=== PATIENT | male | born 2000 | race Caucasian/White ===

== ENCOUNTER 2021-07-18 05:43 | Observation (INO) ==
[2021-07-18] MEDS ORDERED: ONDANSETRON INJ 2 MG/ML 2 ML VIAL IV STA (05:59)
[2021-07-18] MEDS ORDERED: PANTOprazole 80 MG in SYRINGE 0 ML IV ONE (05:59)
[2021-07-18] MEDS ORDERED: FAMOTIDINE 20MG IV PUSH 20 MG/5 ML SYR IV STA (05:59)
[2021-07-18] MEDS ORDERED: SODIUM CHLORIDE 0.9% 1000ML 1,000 ML IV SCH ×2 (06:00→07:45)
[2021-07-18] MEDS ORDERED: PANTOprazole 80 MG in DEXTROSE 5% 100 ML IV ONE ×2 (06:15→10:00)
[2021-07-18 06:30] LABS: Basophils # (auto) 0.02 K/uL (0-0.2); Basophils % (auto) 0.2 %; Eosinophils # (auto) 0.03 K/uL (0-0.5); Eosinophils % (auto) 0.3 %; Hematocrit (blood only) 38.5 % (42-52); Hemoglobin 13.5 g/dL (14.0-18.0); Immature Granulocytes # (auto) 0.02 K/uL (0.00-0.02); Immature Granulocytes % (auto) 0.2 %; Lymphocytes % (auto) 24.6 %; Mean Corpuscular Hemoglobin 30.3 pg (25-34); Mean Corpuscular Hgb Conc 35.1 g/dL (32-36); Mean Corpuscular Volume 86.3 fL (80-100); Mean Platelet Volume 11.1 fL (7.4-10.4); Monocytes # (auto) 0.33 K/uL (0.11-0.59); Monocytes % (auto) 3.2 %; Neutrophils # (auto) 7.27 K/uL (1.4-6.5); Neutrophils % (auto) 71.5 %; Platelet Count 261 K/uL (130-400); RDW Coefficient of Variation 12.9 % (11.5-14.5); RDW Standard Deviation 40.8 fL (36.4-46.3); Red Blood Count 4.46 M/uL (4.7-6.1); White Blood Count 10.17 K/uL (4.8-10.8)
[2021-07-18 06:30] LABS: iSTAT Hemoglobin 13.3 g/dl (14.0-18.0); iSTAT Ionized Calcium 1.08 mmol/l; iSTAT Potassium 3.9 mmol/L (3.3-5.0)
[2021-07-18 06:59] LABS: Albumin Globulin Ratio 1.8 (0.9-2); Albumin Level 4.4 gm/dl (3.4-5.0); BUN Creatinine Ratio 41.4 (10-20); Bilirubin,Total 1.2 mg/dl (0.2-1.0); Calcium 8.9 mg/dl (8.5-10.1); Creatinine Clr Calc Pharmacy 79.1 ml/min; Est GFR (African American) 126.5 ml/min; Est GFR (Non-African American) 109.2 ml/min; Globulin 2.5 gm/dl (2.5-4.0); Potassium 3.8 mmol/L (3.5-5.1); Total Protein 6.9 gm/dl (6.0-8.3)
--- NOTE | 2021-07-18 07:34 | Emergency Department Note ---
History of Present Illness General Chief complaint: GI Assessment Stated complaint: BLOODY VOMIT/STOOL Time Seen by Provider: 07/18/21 06:32 History of Present Illness 20-year-old male presents to the ED with a chief complaint of vomiting blood and black stools. The patient states that he had an episode of vomiting this morning around 3 AM. He states that it was black and also bloody appearing. The patient states that shortly thereafter he moved his bowels and his bowels were black. He states that when he would stand up he felt lightheaded. For this reason he came to the hospital. Denies any chest pains. No abdominal pains. No additional symptoms. He denies NSAID use. The patient denies any other complaints at this time. Past Med/Surg History Social History Smoking Status: Never smoker Preferred Language: Japanese Feels Safe at Home: Yes Review of Systems A total of 10 systems reviewed and were otherwise negative Physical Exam Vital Signs Vital Signs - 24 hr 07/18/21 05:48 07/18/21 06:15 Temperature 36.0 C L Temperature Source Temporal Artery Scan Pulse Rate 87 95 H Respiratory Rate 20 22 Blood Pressure 94/63 L 95/70 L Blood Pressure Mean 73 78 Pulse Oximetry 100 100 Oxygen Delivery Method Room Air Room Air Sepsis Recent Fever Within 48 Hours No Sepsis New/Unexplained Change in Mental Status N/A Sepsis Action Taken by Nursing No Action Required CONSTITUTIONAL/VITAL SIGNS: Reviewed / noted above. GENERAL: Non-toxic in appearance. INTEGUMENTARY: Warm, dry, and [place]. HEAD: Normocephalic. EYES: without scleral icterus or trauma. ENT/OROPHARYNX: clear and moist. LYMPHADENOPATHY/NECK: Is supple without lymphadenopathy or meningismus. RESPIRATORY: Clear to auscultation bilaterally. No increased work of breathing. CARDIOVASCULAR: Regular rate and rhythm. GI/ABDOMEN: Soft and nontender. No organomegaly or pulsatile mass. EXTREMITIES: Warm and well perfused. BACK: No CVA tenderness. NEUROLOGICAL: Intact without focal deficits. PSYCHIATRIC: normal affect. MUSCULOSKELETAL: Normally developed with good muscle tone. RECTAL: Stool is guaiac positive and black TRIAGE NURSING DOCUMENTATION REVIEWED. Course Administered Medications Discontinued Medications Sodium Chloride (Nss 1000ml) 1,000 mls @ 999 mls/hr IV .Q1H1M OPAL Stop: 07/18/21 07:00 Last Infusion: 07/18/21 07:23 Dose: 0 mls/hr Documented by: [id number] Admin: 07/18/21 06:19 Dose: 999 mls/hr Documented by: [id number] Famotidine (Pepcid 20mg Iv Push) 20 mg in 5 mls @ 2.5 mls/min IV NOW STA Stop: 07/18/21 06:00 Last Admin: 07/18/21 06:19 Dose: 2.5 mls/min Documented by: [id number] Pantoprazole Sodium 80 mg/ (Dextrose) 120 mls @ 480 mls/hr IV ONE ONE Stop: 07/18/21 06:29 Last Infusion: 07/18/21 07:23 Dose: 0 mls/hr Documented by: [id number] Admin: 07/18/21 06:35 Dose: 480 mls/hr Documented by: [id number] Ondansetron HCl (Ondansetron Inj 2 Mg/Ml 2 Ml Vial) 4 mg IV NOW STA Stop: 07/18/21 06:00 Last Admin: 07/18/21 06:19 Dose: 4 mg Documented by: [id number] Medical Decision Making Differential Diagnosis Differential includes acute coronary syndrome, myocardial infarction, CVA, TIA, anemia, infection, pneumonia, UTI, pyelonephritis, poor nutrition, dehydration, electrolyte disturbance,hypoglycemia. Medical Records Attestation: I reviewed the patient's medical records. Home Medications Current Medication List: was personally reviewed by me Laboratory Data Attestation: I reviewed the patient's lab results. Result diagrams: 07/18/21 06:14 07/18/21 06:14 Lab Results 07/18/21 07/18/21 07/18/21 Range/Units 06:07 06:14 06:14 WBC 10.17 (4.8-10.8) K/uL RBC 4.46 L (4.7-6.1) M/uL Hgb 13.5 L (14.0-18.0) g/dL POC Hgb (14.0-18.0) g/dl Hct 38.5 L (42-52) % POC Hct (42-52) % MCV 86.3 (80-100) fL MCH 30.3 (25-34) pg MCHC 35.1 (32-36) g/dL RDW Std Deviation 40.8 (36.4-46.3) fL RDW Coeff of Jayshree 12.9 (11.5-14.5) % Plt Count 261 (130-400) K/uL MPV 11.1 H (7.4-10.4) fL Immature Gran % (Auto) 0.2 % Neut % (Auto) 71.5 % Lymph % (Auto) 24.6 % [place] % (Auto) 3.2 % Eos % (Auto) 0.3 % Baso % (Auto) 0.2 % Neut # (Auto) 7.27 H (1.4-6.5) K/uL Lymph # (Auto) 2.50 (1.2-3.4) K/uL [place] # (Auto) 0.33 (0.11-0.59) K/uL Eos # (Auto) 0.03 (0-0.5) K/uL Baso # (Auto) 0.02 (0-0.2) K/uL Immature Gran # (Auto) 0.02 (0.00-0.02) K/uL POC Sodium (135-144) mmol/L Sodium 139 (136-145) mmol/L POC Potassium (3.3-5.0) mmol/L Potassium 3.8 (3.5-5.1) mmol/L POC Chloride (101-112) mmol/L Chloride 104 (98-107) mmol/L Carbon Dioxide 23 (21-32) mmol/L POC Total CO2 (24-31) mmol/L Anion Gap 12 H (3-11) POC Anion Gap (16-25) mmol/L POC BUN (7-18) mg/dl BUN 41 H (6-23) mg/dl Creatinine 0.99 (0.6-1.4) mg/dl POC Creatinine mg/dl Est Cr Clr Drug Dosing 79.1 ml/min Est GFR ( Amer) 126.5 ml/min Est GFR (Non-Af Amer) 109.2 ml/min BUN/Creatinine Ratio 41.4 H (10-20) Glucose 138 H (70-99(Fasting)) mg/dl POC Glucose (other) (70-99) mg/dl Calcium 8.9 (8.5-10.1) mg/dl POC Ioniz Calcium Adriana mmol/l Total Bilirubin 1.2 H (0.2-1.0) mg/dl AST 17 (13-39) U/L ALT 15 (7-52) U/L Alkaline Phosphatase 63 (34-104) U/L Total Protein 6.9 (6.0-8.3) gm/dl Albumin 4.4 (3.4-5.0) gm/dl Globulin 2.5 (2.5-4.0) gm/dl Albumin/Globulin Ratio 1.8 (0.9-2) Blood Type B Positive Antibody Screen NEGATIVE 07/18/21 Range/Units 06:17 WBC (4.8-10.8) K/uL RBC (4.7-6.1) M/uL Hgb (14.0-18.0) g/dL POC Hgb 13.3 L (14.0-18.0) g/dl Hct (42-52) % POC Hct 39 L (42-52) % MCV (80-100) fL MCH (25-34) pg MCHC (32-36) g/dL RDW Std Deviation (36.4-46.3) fL RDW Coeff of Jayshree (11.5-14.5) % Plt Count (130-400) K/uL MPV (7.4-10.4) fL Immature Gran % (Auto) % Neut % (Auto) % Lymph % (Auto) % [place] % (Auto) % Eos % (Auto) % Baso % (Auto) % Neut # (Auto) (1.4-6.5) K/uL Lymph # (Auto) (1.2-3.4) K/uL [place] # (Auto) (0.11-0.59) K/uL Eos # (Auto) (0-0.5) K/uL Baso # (Auto) (0-0.2) K/uL Immature Gran # (Auto) (0.00-0.02) K/uL POC Sodium 140 (135-144) mmol/L Sodium (136-145) mmol/L POC Potassium 3.9 (3.3-5.0) mmol/L Potassium (3.5-5.1) mmol/L POC Chloride 103 (101-112) mmol/L Chloride (98-107) mmol/L Carbon Dioxide (21-32) mmol/L POC Total CO2 23 L (24-31) mmol/L Anion Gap (3-11) POC Anion Gap 19.0 (16-25) mmol/L POC BUN 40 H (7-18) mg/dl BUN (6-23) mg/dl Creatinine (0.6-1.4) mg/dl POC Creatinine 1.0 mg/dl Est Cr Clr Drug Dosing ml/min Est GFR ( Amer) ml/min Est GFR (Non-Af Amer) ml/min BUN/Creatinine Ratio (10-20) Glucose (70-99(Fasting)) mg/dl POC Glucose (other) 138 H (70-99) mg/dl Calcium (8.5-10.1) mg/dl POC Ioniz Calcium Adriana 1.08 mmol/l Total Bilirubin (0.2-1.0) mg/dl AST (13-39) U/L ALT (7-52) U/L Alkaline Phosphatase (34-104) U/L Total Protein (6.0-8.3) gm/dl Albumin (3.4-5.0) gm/dl Globulin (2.5-4.0) gm/dl Albumin/Globulin Ratio (0.9-2) Blood Type Antibody Screen ECG Data Attestation: I personally reviewed and interpreted this ECG as follows: Additional Comments: Twelve-lead EKG: Per my interpretation shows a normal sinus rhythm at a rate of 89. No ST elevation. No PVCs. Normal QTC. MDM Narrative Patient presents to the ED with vomiting some blood this morning and black stool that is guaiac positive here in the ED. The patient had orthostatic hypotension. When I stood him, his heart rate went up to 140 and was sinus tach. His blood p ressure dropped to 79/41. He was beginning to feel symptomatic with this. His hemoglobin this morning was 13.5. EKG shows a normal sinus rhythm. BUN is elevated. Chemistry panel was otherwise unremarkable. The patient symptoms are likely representative phlebotomy services of an upper GI bleed. He denies NSAID use or any significant risk factors for ulcer. He is a [employer] student. The patient was treated with IV fluids, IV Pepcid, IV pantoprazole and IV Zofran. Impression & Plan Upper gastrointestinal hemorrhage Discharge Plan Visit Data Chief Complaint: GI Assessment Stated Complaint: BLOODY VOMIT/STOOL ED Provider: Nelson Copeland Discharge Problem: Upper gastrointestinal hemorrhage Patient Disposition: Admitted As Inpatient Forms Stand Alone Forms: [facility], [facility] Emergency Department, Important Visit Information Referrals Referrals: PCP,NO [Primary Care Provider] -
[2021-07-18] MEDS ORDERED: ONDANSETRON INJ 2 MG/ML 2 ML VIAL IV PRN (07:37)
[2021-07-18] MEDS ORDERED: PANTOPRAZOLE BOLUS/DRIP 1 EA IV STA (07:37)
--- NOTE | 2021-07-18 08:34 | History & Physical Report ---
Date of Service July 18, 2021 Assessment & Plan (1) Upper GI bleed: Plan: 20 y/o male with no PMHx presented with 1 episode of hematochezia followed by 1 bout of melanotic stools. Then felt near-syncopal prompting eval into the ED * exact etiology unclear: no NSAIDs, ETOH, self induced vomiting/bulimia, recent GI illness/vomiting (to suspect Roseanne Degroot tear), no family h/o IBD, no melena or hematochezia prior to today * at any rate, he is marginally hypotensive (95/70 and now 107/62 with IVF) * H/H stable: 13.5/38.5 * Protonix gtt * NPO status * consult GI for EGD-- appreciate recommendations * stool for H.Pylori * trend H/H q6h * antiemetics prn (2) Hypotension: Plan: * 95/70 and near syncopal upon arrival. * improved with IVF (107/62)-- likely baseline as he is young * continue IVF * monitor H/H as outlined above. (3) Near syncope: Plan: * 2/2 to above * monitor Plan: Full code chemical DVT prophylaxis contraindicated given hematemesis plan of care to be D/W attending History of Present Illness Chief Complaint: Hematemesis Primary Care Provider: [facility] Mr. Larkin Is a 20-year-old white male with no significant underlying past medical history who presented to the emergency department following an episode of hematemesis. Was in his usual state of health when going to bed last evening. Awoke at 3 AM with projectile vomiting. When he looked in the toilet, noticed that the toilet water was filled with bright red blood. Following this episode, he also had a bout of melanotic stools. Has never had any episodes like this before. Denies any alcohol use, NSAID use, or vomiting leading up to this episode. No history of bulimia. Does not use tobacco or caffeine. Is slightly stressed from school but no other significant stressors. Does not take any medication. No history of IBD in himself or family but reports a brother who has had a stomach ulcer. Patient has never had an EGD in the past. He presented to the emergency department as he felt dizzy and lightheaded when standing. Upon presentation to the ED, he was found to be marginally hypotensive at 95/70 and dizzy. His H&H are stable at 13.5 and 38.5. His BUN is elevated slightly at 40 with a normal creatinine of 0.99. His total bilirubin is slightly elevated at 1.2 with normal AST/ALT. He had a positive fecal occult blood. Will be hospitalized for further evaluation and care. Allergies Allergy/AdvReac Type Severity Reaction Status Date / Time No Known Allergies Allergy Unverified 07/18/21 07:36 Home Medications Medication Instructions Recorded Confirmed Type No Known Home Medications 07/18/21 07/18/21 History Past Med/Surg History Surgical History History of appendectomy Family History Brother Peptic ulcer disease Father Unknown family medical history Mother Unknown family medical history Social History Smoking Status: Never smoker Second Hand Exposure: No; Hx Alcohol Use: No Hx Substance Use: No Preferred Language: Spanish Visual Impairment: No Limitations Hearing Ability: Normal Chalk Cutter Required: No Beliefs That Will Affect Care: None marital status: Single Current Living Situation: Alone current occupational status: student 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 Physical Exam Physical Exam: General: Resting comfortably in his hospital bed. NAD. HEENT: Head is AT/NC. Buccal mucosa is moist and pink Neck: No JVD. Negative hepatojugular reflex Cardiac: RRR without M/G/R Lungs: CTA without W/R/R Abdomen: Normoactive X4. Soft and nontender in all quadrants.. No epigastric discomfort Extremities: No peripheral clubbing cyanosis or edema Neuro: A&O X4. Cranial nerves II through XII are grossly intact. No focal neuro deficits Skin: No obvious skin lesions or rashes Psych: Appropriate affect. Pleasant and cooperative Results & Data Results & Data ([facility]) Vital Signs (Past 12 Hours) Vital Signs Temp Pulse Resp BP Pulse Ox 07/18/21 06:15 95 H 22 95/70 L 100 07/18/21 05:48 36.0 C L 87 20 94/63 L 100 Laboratory Results Laboratory Results - last 24 hr 07/18/21 07/18/21 07/18/21 06:07 06:14 06:14 WBC 10.17 RBC 4.46 L Hgb 13.5 L POC Hgb Hct 38.5 L POC Hct MCV 86.3 MCH 30.3 MCHC 35.1 RDW Std Deviation 40.8 RDW Coeff of Jayshree 12.9 Plt Count 261 MPV 11.1 H Immature Gran % (Auto) 0.2 Neut % (Auto) 71.5 Lymph % (Auto) 24.6 [place] % (Auto) 3.2 Eos % (Auto) 0.3 Baso % (Auto) 0.2 Neut # (Auto) 7.27 H Lymph # (Auto) 2.50 [place] # (Auto) 0.33 Eos # (Auto) 0.03 Baso # (Auto) 0.02 Immature Gran # (Auto) 0.02 POC Sodium Sodium 139 POC Potassium Potassium 3.8 POC Chloride Chloride 104 Carbon Dioxide 23 POC Total CO2 Anion Gap 12 H POC Anion Gap POC BUN BUN 41 H Creatinine 0.99 POC Creatinine Est Cr Clr Drug Dosing 79.1 Est GFR ( Amer) 126.5 Est GFR (Non-Af Amer) 109.2 BUN/Creatinine Ratio 41.4 H Glucose 138 H POC Glucose (other) Calcium 8.9 POC Ioniz Calcium Adriana Total Bilirubin 1.2 H AST 17 ALT 15 Alkaline Phosphatase 63 Total Protein 6.9 Albumin 4.4 Globulin 2.5 Albumin/Globulin Ratio 1.8 SARS-CoV-2, RNA, NAAT Blood Type B Positive Antibody Screen NEGATIVE 07/18/21 07/18/21 07/18/21 06:17 08:10 13:57 WBC RBC Hgb 9.4 L D POC Hgb 13.3 L Hct 26.6 L POC Hct 39 L MCV MCH MCHC RDW Std Deviation RDW Coeff of Jayshree Plt Count MPV Immature Gran % (Auto) Neut % (Auto) Lymph % (Auto) [place] % (Auto) Eos % (Auto) Baso % (Auto) Neut # (Auto) Lymph # (Auto) [place] # (Auto) Eos # (Auto) Baso # (Auto) Immature Gran # (Auto) POC Sodium 140 Sodium POC Potassium 3.9 Potassium POC Chloride 103 Chloride Carbon Dioxide POC Total CO2 23 L Anion Gap POC Anion Gap 19.0 POC BUN 40 H BUN Creatinine POC Creatinine 1.0 Est Cr Clr Drug Dosing Est GFR ( Amer) Est GFR (Non-Af Amer) BUN/Creatinine Ratio Glucose POC Glucose (other) 138 H Calcium POC Ioniz Calcium Adriana 1.08 Total Bilirubin AST ALT Alkaline Phosphatase Total Protein Albumin Globulin Albumin/Globulin Ratio SARS-CoV-2, RNA, NAAT NEGATIVE Blood Type Antibody Screen Code Status & VTE Plan VTE Prophylaxis Plan VTE Prophylaxis will be ordered: Yes Supervising Physician Co-Signing Physician Notes Patient seen and examined, chart reviewed, case discussed with Jade Titus PA-C and I agree with the assessment and plan as above except as otherwise noted General: A&Ox3. NAD. Cooperative. HEENT: Atraumatic, normocephalic. Vision/hearing grossly intact. Pulm: CTAB A&P. -wheezes, -rales, -rhonchi. Symmetrical chest rise. No increase in work of breathing. No respiratory distress. Cardiac: RRR, -mrg. Radial pulses intact and symmetrical. Abdominal: Nontender, nondistended, soft. BS present. Labs and images reviewed 20-year-old male who presents for an episode of hematemesis and associated dizziness/syncope/melena. No history of NSAID use/alcohol, family history of peptic ulcer disease present. Patient was hypotensive which improved with NSS bolus and Protonix drip. EGD showing nonbleeding cratered gastric ulcers with no stigmata, biopsies taken, 1 nonbleeding cratered duodenal ulcer. Discussed with GI, may start Protonix 40 mg twice daily for 3 months, advance diet as tolerated. Patient doing well, but with post procedure hemoglobin drop from 13.5-9.4. Will observe overnight for hemoglobin stability. Agree with plan of management above. PG Care Time/CCT Total # of Minutes Spent Total Time Spent with Patient: Total time spent is greater than 50% in coordination of care (as documented) at patient's floor/unit and/or counseling patient: Coding Level of Care Code INT OBSERVATION CARE 70M LVL 3 Diagnoses Upper GI bleed K92.2 Hypotension I95.9 Near syncope R55
[2021-07-18] MEDS: PANTOprazole 40 MG in DEXTROSE 5% 100 ML IV SCH ×2 (08:37→16:42)
[2021-07-18] MEDS ORDERED: ACETAMINOPHEN 325 MG TAB PO PRN (09:02)
[2021-07-18] MEDS ORDERED: METOCLOPRAMIDE HCL INJ 5 MG/ML 2 ML VIAL IV STA (10:03)
--- NOTE | 2021-07-18 10:08 | Gastrointestinal Consultation ---
Date of Consultation July 18, 2021 Assessment & Plan (1) Hypotension: (2) Upper GI bleed: (3) Heme positive stool: Diff dx: Roseanne-Degroot tear vs Rigo's erosion vs PUD vs AVM vs malignancy (less likely) vs other. Plan: * NPO for now. * Reglan 10mg IV x 1 now. * EGD with Dr. Gupta for further evaluation. * Fluid resuscitation with NS Bolus to tx hypotension. * Maintain 2 large bore IVs. * Transfuse hgb<8. * Continue PPI ggt at 8 mg/hr. * Further recommendations pending results of testing. Thank you for allowing us to participating in the care of this pleasant patient. If you have any questions or concerns, please do not hesitate to contact us. Supervising Physician Co-Signing Physician Notes I personally evaluated the patient and agree with the findings as documented by EMILI Lozano Exam: Constitutional: WD/WN, vitals as above General: EOM intact bilaterally Neck: normal visual inspection Respiratory: normal respiratory effort, lungs clear to auscultation Cardiovascular: RRR, no murmur, no edema Gastrointestinal: abdomennormal to inspection, nondistended, soft, nontender, no hepatosplenomegaly Musculoskeletal: no cyanosis, head normal to inspection Skin: no rashes, warm and dry Neurologic: moves all extremities Psychiatric: A and O x3, euthymic affect Proceed with EGD. risks/benefits and procedure discussed with patient, who agrees to proceed History of Present Illness Reason for Consultation: UGIB/Hematemesis Requesting Physician: Graciela Titus PA-C Attending Physician: Sanket Gutierrez MD History of Present Illness Abrahan Larkin is a very pleasant 20 y.o male no past medical history presenting to the ER early this morning after a single episode of hematemesis which was bright red in nature. There was associated dizziness and syncope and melanotic diarrhea. He denies any nausea or further vomiting. No abdominal pain. Denies any fevers or chills, headache, chest pain, palpitations, shortness of breath, cough or fatigue. The patient denies any bulimia history, NSAID use or alcohol consumption. Does not take any medications. There were no pertinent precipitating events leading up to the onset of symptoms. Family history is significant for a brother with a history of PUD. In the ER, he is hemodynamically stable with H&H of 13.5/38.5. Heme positive in the ER. He remains slightly hypotensive with BP of 97/70. NS bolus is currently infusing as well as PPI ggt. He is NPO. Allergies Allergy/AdvReac Type Severity Reaction Status Date / Time No Known Allergies Allergy Unverified 07/18/21 07:36 Home Medications Medication Instructions Recorded Confirmed Type No Known Home Medications 07/18/21 07/18/21 History Patient History Surgical History (Updated 07/18/21 @ 09:18 by Graciela Titus PA-C) History of appendectomy Family History (Updated 07/18/21 @ 10:17 by EMILI Wells) Brother Peptic ulcer disease Father Unknown family medical history Mother Unknown family medical history Social History (Updated 07/18/21 @ 10:16 by EMILI Wells) Smoking Status: Never smoker Hx Alcohol Use: No Hx Substance Use: No Preferred Language: Colombian Visual Impairment: No Limitations Hearing Ability: Normal 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 marital status: Single current occupational status: student 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 Feels Safe at Home: Yes Review of Systems Review of Systems: All systems reviewed & are unremarkable except as noted in HPI & below Physical Exam Constitutional: WD/WN, vitals as above Eyes: EOM intact bilaterally Neck: normal appearance Respiratory: normal respiratory effort, lungs clear to auscultation Cardiovascular: Rate/Rhythm: regular rate and regular rhythm Heart Sounds: no gallop and no murmur Gastrointestinal (Abdomen): normal bowel sounds, soft, nontender, no hepatosplenomegaly Inspection/Auscultation: abdomen not distended Musculoskeletal: Extremities: no cyanosis no lower extremity edema Skin: no rashes, warm and dry Neurologic: moves all extremities Psychiatric: A+Ox3, euthymic affect Results & Data ([place]) Vital Signs (Past 12 Hours) Vital Signs Temp Pulse Resp BP Pulse Ox Pulse Ox 07/18/21 09:46 100 07/18/21 06:15 95 H 22 95/70 L 100 07/18/21 05:48 36.0 C L 87 20 94/63 L 100 Diagnostic Findings Laboratory Results WBC 10.17 K/uL (4.8-10.8) 07/18/21 06:14 RBC 4.46 M/uL (4.7-6.1) L 07/18/21 06:14 Hgb 13.5 g/dL (14.0-18.0) L 07/18/21 06:14 POC Hgb 13.3 g/dl (14.0-18.0) L 07/18/21 06:17 Hct 38.5 % (42-52) L 07/18/21 06:14 POC Hct 39 % (42-52) L 07/18/21 06:17 MCV 86.3 fL (80-100) 07/18/21 06:14 MCH 30.3 pg (25-34) 07/18/21 06:14 MCHC 35.1 g/dL (32-36) 07/18/21 06:14 RDW Std Deviation 40.8 fL (36.4-46.3) 07/18/21 06:14 RDW Coeff of Jayshree 12.9 % (11.5-14.5) 07/18/21 06:14 Plt Count 261 K/uL (130-400) 07/18/21 06:14 MPV 11.1 fL (7.4-10.4) H 07/18/21 06:14 Immature Gran % (Auto) 0.2 % 07/18/21 06:14 Neut % (Auto) 71.5 % 07/18/21 06:14 Lymph % (Auto) 24.6 % 07/18/21 06:14 [place] % (Auto) 3.2 % 07/18/21 06:14 Eos % (Auto) 0.3 % 07/18/21 06:14 Baso % (Auto) 0.2 % 07/18/21 06:14 Neut # (Auto) 7.27 K/uL (1.4-6.5) H 07/18/21 06:14 Lymph # (Auto) 2.50 K/uL (1.2-3.4) 07/18/21 06:14 [place] # (Auto) 0.33 K/uL (0.11-0.59) 07/18/21 06:14 Eos # (Auto) 0.03 K/uL (0-0.5) 07/18/21 06:14 Baso # (Auto) 0.02 K/uL (0-0.2) 07/18/21 06:14 Immature Gran # (Auto) 0.02 K/uL (0.00-0.02) 07/18/21 06:14 POC Sodium 140 mmol/L (135-144) 07/18/21 06:17 Sodium 139 mmol/L (136-145) 07/18/21 06:14 POC Potassium 3.9 mmol/L (3.3-5.0) 07/18/21 06:17 Potassium 3.8 mmol/L (3.5-5.1) 07/18/21 06:14 POC Chloride 103 mmol/L (101-112) 07/18/21 06:17 Chloride 104 mmol/L (98-107) 07/18/21 06:14 Carbon Dioxide 23 mmol/L (21-32) 07/18/21 06:14 POC Total CO2 23 mmol/L (24-31) L 07/18/21 06:17 Anion Gap 12 (3-11) H 07/18/21 06:14 POC Anion Gap 19.0 mmol/L (16-25) 07/18/21 06:17 POC BUN 40 mg/dl (7-18) H 07/18/21 06:17 BUN 41 mg/dl (6-23) H 07/18/21 06:14 Creatinine 0.99 mg/dl (0.6-1.4) 07/18/21 06:14 POC Creatinine 1.0 mg/dl 07/18/21 06:17 Est Cr Clr Drug Dosing 79.1 ml/min 07/18/21 06:14 Est GFR ( Amer) 126.5 ml/min 07/18/21 06:14 Est GFR (Non-Af Amer) 109.2 ml/min 07/18/21 06:14 BUN/Creatinine Ratio 41.4 (10-20) H 07/18/21 06:14 Glucose 138 mg/dl (70-99(Fasting)) H 07/18/21 06:14 POC Glucose (other) 138 mg/dl (70-99) H 07/18/21 06:17 Calcium 8.9 mg/dl (8.5-10.1) 07/18/21 06:14 POC Ioniz Calcium Adriana 1.08 mmol/l 07/18/21 06:17 Total Bilirubin 1.2 mg/dl (0.2-1.0) H 07/18/21 06:14 AST 17 U/L (13-39) 07/18/21 06:14 ALT 15 U/L (7-52) 07/18/21 06:14 Alkaline Phosphatase 63 U/L (34-104) 07/18/21 06:14 Total Protein 6.9 gm/dl (6.0-8.3) 07/18/21 06:14 Albumin 4.4 gm/dl (3.4-5.0) 07/18/21 06:14 Globulin 2.5 gm/dl (2.5-4.0) 07/18/21 06:14 Albumin/Globulin Ratio 1.8 (0.9-2) 07/18/21 06:14 SARS-CoV-2, RNA, NAAT NEGATIVE (NEGATIVE) 07/18/21 08:10 Blood Type B Positive 07/18/21 06:07 Antibody Screen NEGATIVE 07/18/21 06:07 PG Care Time/CCT Total # of Minutes Spent Total Time Spent with Patient: Total time spent is greater than 50% in coordination of care (as documented) at patient's floor/unit and/or counseling patient: Coding Level of Care Code 44937 Inpt Consult Level 4 Diagnoses Hypotension I95.9 Upper GI bleed K92.2 Heme positive stool R19.5
[2021-07-18] MEDS ORDERED: PANTOprazole 40 MG in DEXTROSE 5% 100 ML IV SCH (10:15)
--- NOTE | 2021-07-18 11:34 | Anesthesiology Consultation ---
Date of Service July 18, 2021 Assessment & Plan Chart Review Chart Review: Acceptable Risk for Surgery Consults Requested none History Surgery Operation Date: 07/18/21 15:30 Proposed Procedures p Esophagogastroduodenoscopy Dr. Candy Gupta MD Height/Weight Height: 5 ft 6 in Weight: 47 kg Allergies Allergy/AdvReac Type Severity Reaction Status Date / Time No Known Allergies Allergy Unverified 07/18/21 07:36 Medications Home Medications Medication Instructions Recorded Confirmed Last Taken No Known Home Medications 07/18/21 07/18/21 Unknown Active Medications Generic Name Dose Route Start Last Admin Trade Name Freq PRN Reason Stop Dose Admin Sodium Chloride 1,000 mls @ 125 mls/hr 07/18/21 07:45 07/18/21 07:53 Nss 1000ml IV 08/17/21 07:44 125 mls/hr .Q8H OPAL Administration Pantoprazole Sodium 40 mg/ 100 mls @ 20 mls/hr 07/18/21 08:00 07/18/21 08:37 Dextrose IV 08/17/21 07:59 8 mg/hr Q5H OPAL 20 mls/hr Administration 8 MG/HR Past Family History Family History (Updated 07/18/21 @ 10:17 by EMILI Wells) Brother Peptic ulcer disease Father Unknown family medical history Mother Unknown family medical history Past Surgical History Surgical History (Updated 07/18/21 @ 09:18 by Graciela Titus PA-C) History of appendectomy Social History Smoking Status: Never smoker Hx Alcohol Use: No Hx Substance Use: No Physical Exam Vital Signs Last Vital Signs Temp 36.0 C L 07/18/21 05:48 Pulse 67 07/18/21 11:00 Resp 18 07/18/21 11:00 BP 95/55 L 07/18/21 11:00 Pulse Ox 95 07/18/21 11:00 Testing Laboratory Results 07/18/21 06:14 07/18/21 06:14 Blood Type B Positive 07/18/21 06:07 Antibody Screen NEGATIVE 07/18/21 06:07 07/18/21 06:17 POC Glucose (other) 138 H
--- NOTE | 2021-07-18 12:42 | GI REPORT ---
Patient Name: Abrahan Larkin Procedure Date: 07/18/2021 12:18 PM Date of : 2000 Admit Type: Inpatient Age: 20 Gender: Male Attending MD: Constantino Gupta MD Procedure: Upper GI endoscopy Providers: Constantino Gupta MD Referring MD: Sanket Gutierrez Iv, M.d. Indications: Hematemesis Medicines: Monitored Anesthesia Care Complications: No immediate complications. Estimated blood loss: None. Estimated Blood Loss: Estimated blood loss: none. Procedure: Pre-Anesthesia Assessment: - Prior Anticoagulants: The patient has taken no previous anticoagulant or antiplatelet agents. - ASA Grade Assessment: II - A patient with mild systemic disease. After obtaining informed consent, the endoscope was passed under direct vision. Throughout the procedure, the patient's blood pressure, pulse, and oxygen saturations were monitored continuously. The Endoscope was introduced through the mouth, and advanced to the second part of duodenum. The upper GI endoscopy was accomplished without difficulty. The patient tolerated the procedure well. Findings: The examined esophagus was normal. Few non-bleeding cratered gastric ulcers with no stigmata of bleeding were found in the stomach. Biopsies were taken with a cold forceps for Helicobacter pylori testing. Estimated blood loss: none. One non-bleeding cratered duodenal ulcer with no stigmata of bleeding was found in the duodenal bulb. The lesion was 12 mm in largest dimension. Estimated blood loss: none. The second portion of the duodenum was normal. Impression: - Normal esophagus. - Non-bleeding gastric ulcers with no stigmata of bleeding. Biopsied. - Non-bleeding duodenal ulcer with no stigmata of bleeding. - Normal second portion of the duodenum. Recommendation: - [facility] for [facility] care. - Advance diet as tolerated today. - Await pathology results. -d/c protonix drip -start protonix 40 mg BID for 3 months Constantino Gupta MD 07/18/2021 12:41:41 PM This report has been signed electronically. Note Initiated On: 07/18/2021 12:18 PM Number of Addenda: 0 I attest to the content of the Intraoperative Record and orders documented therein, exceptions below {[id number]}
--- NOTE | 2021-07-18 13:39 | Anesthesiology Progress Note ---
Date of Service July 18, 2021 Anesthesia Post Procedure Vital Signs Vital Signs: Temp Pulse Pulse Resp BP BP Pulse Ox 07/18/21 13:11 68 18 89/38 L 99 07/18/21 12:56 70 18 87/41 L 98 07/18/21 12:41 84 12 86/46 L 100 07/18/21 11:38 37 C 67 18 94/57 L 99 07/18/21 11:00 67 18 95/55 L 95 07/18/21 09:46 07/18/21 06:15 95 H 22 95/70 L 100 07/18/21 05:48 36.0 C L 87 20 94/63 L 100 Pulse Ox 07/18/21 13:11 07/18/21 12:56 07/18/21 12:41 07/18/21 11:38 07/18/21 11:00 07/18/21 09:46 100 07/18/21 06:15 07/18/21 05:48 Transfer of Care Handoff Completed per policy Notes Mental Status: alert / awake / arousable and participated in evaluation Patient Amnestic to Procedure: Yes Nausea / Vomiting: adequately controlled Pain: adequately controlled Airway Patency, RR, SpO2: stable & adequate BP & HR: stable & adequate Hydration State: stable & adequate Anesthetic Complications: no major complications apparent
[2021-07-18 14:14] LABS: Hematocrit (blood only) 26.6 % (42-52); Hemoglobin 9.4 g/dL (14.0-18.0)
[2021-07-18] MEDS ORDERED: IRON SUCROSE 300 MG in SODIUM CHLORIDE 0.9% 250 ML IV ONE (15:30)
[2021-07-18 15:38] LABS: Ferritin 90.1 ng/ml (8-388)
--- NOTE | 2021-07-18 16:59 | Electrocardiogram Report ---
Test Reason : Blood Pressure : / mmHG Vent. Rate : 089 BPM Atrial Rate : 089 BPM P-R Int : 148 ms QRS Dur : 082 ms QT Int : 344 ms P-R-T Axes : 080 077 067 degrees QTc Int : 418 ms Normal sinus rhythm ST elevation, consider early repolarization, pericarditis, or injury Abnormal ECG No previous ECGs available Confirmed by Moses Harrison ([id number]) on 07/18/2021 4:58:34 PM Referred By: Confirmed By:Moses Harrison
[2021-07-18 19:57] LABS: Hemoglobin 8.4 g/dL (14.0-18.0)
[2021-07-18] MEDS: PANTOprazole 40 MG TAB PO SCH (20:19)
[2021-07-19 00:48] LABS: Hematocrit (blood only) 25.3 % (42-52); Hemoglobin 8.7 g/dL (14.0-18.0)
[2021-07-19 01:06] LABS: BUN Creatinine Ratio 25.5 (10-20); Calcium 7.8 mg/dl (8.5-10.1); Creatinine Clr Calc Pharmacy 79.9 ml/min; Est GFR (African American) 128.1 ml/min; Est GFR (Non-African American) 110.5 ml/min; Potassium 3.5 mmol/L (3.5-5.1)
--- NOTE | 2021-07-19 07:24 | Communication Note ---
Date of Service: July 19, 2021 Passed another melena stool this evening. Downtrending Hb, but repeat was stable. Asymptomatic. Consider ongoing bleeding. Patient made NPO.
[2021-07-19 07:38] LABS: BUN Creatinine Ratio 27.2 (10-20); Calcium 7.7 mg/dl (8.5-10.1); Creatinine Clr Calc Pharmacy 102.1 ml/min; Est GFR (African American) 148.3 ml/min; Est GFR (Non-African American) 127.9 ml/min; Potassium 3.8 mmol/L (3.5-5.1)
[2021-07-19 07:46] LABS: Hematocrit (blood only) 22.9 % (42-52); Mean Corpuscular Hemoglobin 30.1 pg (25-34); Mean Corpuscular Hgb Conc 34.9 g/dL (32-36); Mean Corpuscular Volume 86.1 fL (80-100); Mean Platelet Volume 10.8 fL (7.4-10.4); Platelet Count 158 K/uL (130-400); RDW Coefficient of Variation 13.1 % (11.5-14.5); RDW Standard Deviation 40.8 fL (36.4-46.3); Red Blood Count 2.66 M/uL (4.7-6.1); White Blood Count 4.82 K/uL (4.8-10.8)
[2021-07-19 07:47] LABS: Basophils # (auto) 0.01 K/uL (0-0.2); Basophils % (auto) 0.2 %; Eosinophils # (auto) 0.08 K/uL (0-0.5); Eosinophils % (auto) 1.7 %; Lymphocytes # (auto) 2.67 K/uL (1.2-3.4); Lymphocytes % (auto) 55.4 %; Monocytes # (auto) 0.28 K/uL (0.11-0.59); Monocytes % (auto) 5.8 %; Neutrophils # (auto) 1.78 K/uL (1.4-6.5); Neutrophils % (auto) 36.9 %
[2021-07-19] MEDS: PANTOprazole 40 MG TAB PO SCH (07:47)
[2021-07-19] MEDS ORDERED: SODIUM CHLORIDE 0.9% 250 ML IV PRN (07:53)
--- NOTE | 2021-07-19 13:04 | Discharge Summary ---
Date of Service July 19, 2021 Admission HPI Per Admitting Provider Mr. Larkin Is a 20-year-old white male with no significant underlying past medical history who presented to the emergency department following an episode of hematemesis. Was in his usual state of health when going to bed last evening. Awoke at 3 AM with projectile vomiting. When he looked in the toilet, noticed that the toilet water was filled with bright red blood. Following this episode, he also had a bout of melanotic stools. Has never had any episodes like this before. Denies any alcohol use, NSAID use, or vomiting leading up to this episode. No history of bulimia. Does not use tobacco or caffeine. Is slightly stressed from school but no other significant stressors. Does not take any medication. No history of IBD in himself or family but reports a brother who has had a stomach ulcer. Patient has never had an EGD in the past. He presented to the emergency department as he felt dizzy and lightheaded when standing. Upon presentation to the ED, he was found to be marginally hypotensive at 95/70 and dizzy. His H&H are stable at 13.5 and 38.5. His BUN is elevated slightly at 40 with a normal creatinine of 0.99. His total bilirubin is slightly elevated at 1.2 with normal AST/ALT. He had a positive fecal occult blood. Will be hospitalized for further evaluation and care. Admission Exam Per Admitting Provider General: Resting comfortably in his hospital bed. NAD. HEENT: Head is AT/NC. Buccal mucosa is moist and pink Neck: No JVD. Negative hepatojugular reflex Cardiac: RRR without M/G/R Lungs: CTA without W/R/R Abdomen: Normoactive X4. Soft and nontender in all quadrants.. No epigastric discomfort Extremities: No peripheral clubbing cyanosis or edema Neuro: A&O X4. Cranial nerves II through XII are grossly intact. No focal neuro deficits Skin: No obvious skin lesions or rashes Psych: Appropriate affect. Pleasant and cooperative Principal Diagnosis Upper GI Bleed Discharge Exam Constitutional WD/WN, vitals as above cooperative and comfortable; no acute distress Eyes + anicteric sclerae ENMT external ear and nose normal, oropharynx normal Neck trachea midline Respiratory normal respiratory effort, lungs clear to auscultation Cardiovascular RRR, no murmur, no edema Heart Sounds: normal S1 and normal S2 Gastrointestinal (Abdomen) normal bowel sounds, soft, nontender, no hepatosplenomegaly Musculoskeletal Head/Neck/Chest: normocephalic and head atraumatic Skin no rashes, warm and dry Neurologic moves all extremities Psychiatric A+Ox3, euthymic affect Discharge Data Allergies Allergy/AdvReac Type Severity Reaction Status Date / Time No Known Allergies Allergy Unverified 07/18/21 07:36 Consultations 07/18/21 09:02 Consult Gastroenterology Routine Procedures Performed Operation Date: 07/18/21 15:30 Actual Procedures p EGD Biopsy Cytology - Constantino Gupta MD Hospital Course (1) Upper GI bleed: 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 - Hgb on admission was normal at 13.5. However over the course of hospital stay, trended down to 8.0. He was transfused with one unit of pRBCs. - symptomatic on arrival with hypotension and near syncopal episode - patient was started on a protonix drip and made NPO - GI consulted, performed EGD. Multiple non-bleeding ulcerations in stomach and duodenum were identified. - As for the cause of the ulcers, this remains unknown. He does not take NSAIDs or drink etoh. Surgical pathology sent for H. pylori testing, still pending at discharge. If this returns negative, GI referral recommended for consideration of hyper gastric secretion syndromes. 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 [Primary Care Provider] - Diet: Regular Addtl Attending Provider Instructions: You were hospitalized at [facility] for evaluation of bloody vomitus and bowel movements. Gastroenterology was consulted during your stay and they performed an endoscopy procedure of your upper GI tract. They found evidence of multiple ulcers in the stomach and duodenum (the first part of the small intestine). These ulcers are the likely explanation as the cause of your symptoms. We discussed how ulcers as erosions of the top layer of cells in the body. They can be caused by high intake of medications like advil or ibuprofen. They can also be caused by acid foods (like citrus) and alcohol intake. Another common cause of stomach ulcers is bacterial infection known as "H.pylori." We are testing you for H.pylori - although the results did not come back at the time of your discharge. You will be contacted if your testing returned positive. In the event the testing is positive, we will call an antibiotic regimen into your pharmacy for you start. If the H.pylori testing returns negative, there may be another explanation for your ulcers (ie genetic cause). You will need to follow up with GI for further evaluation in this case. Due to your ongoing bleeding, your hemoglobin dropped while in the hospital rather notably. For this reason, you were transfused 1 unit of blood. Please take the stomach acid blocking medication known as protonix, 40mg, twice daily for the next 3 months. Being on an acid brenda will help your ulcerations heal. Pending Studies at Discharge: Yes (H. Pylori) Stand-Alone Forms: My [facility] [employer], Smoking Cessation Medications and DC Order Prescriptions: New pantoprazole 40 mg tablet,delayed release (DR/EC) 40 mg PO BID 30 Days Qty: 60 RF: 2 Discharge Orders: Discharge Order (Routine); Ordered 07/19/21 Ordered By: Natividad Chopra Admission Data Admit Date/Time: 07/18/21 07:37 Attending Provider: Chandler Chacon Admit Provider: Sanket Gutierrez Primary Care Provider: [facility] Other Providers: Radha Riley ; Sanket Gutierrez Other Interventions: Discharge Summary Assessment (RN) Last Done: 07/19/21 13:07 Supervising Physician Co-Signing Physician Notes I personally examined the patient and verified all aiken points of history and exam, discussed case, and agree with decision making with Dr Chopra feels good "i don't really feel like i need to be here anymore" - lightheadedness gone. dark stools lesssening. no other complaints. 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 vitals noted nad heent nc at mmm breathing unlabored no accessory muscles good effort skin no rashes no pallor or icterus UGI bleed w acute blood loss anemia related to PUD -transfused 1 unit this AM due to Hgb 8, fairly massive drop in Hgb from admission, and lightheadedness -clinically and endoscopically appears bleeding has stopped and safe for home, close outpt f/u -PPI BID -f/u H Pylori testing --> if negative - ongoing GI eval for ?etiology of such significant PUD without any other clear risks otherwise as above Resident Activity Tracking Resident Involvement: Resident Care Provided Care Provided: Adult Hospital Medicine
--- NOTE | 2021-07-19 15:37 | Billing Data ---
Date of Service July 19, 2021 Coding Level of Care Code D/C DAY MANAGEMENT <30 MINS
== END 2021-07-19 14:10 | disposition home or self-care (01) ==
LOC: EDINP 05:43 → ED 05:43 → SUATTDRO 07:37 → 2N 09:30